=== PATIENT | male | born 1980 | race Caucasian/White ===

== ENCOUNTER 2017-08-15 20:40 | Emergency (ER) | payer OTHER ==
[~2017-08-15 20:40] MED LIST: AMOXIL 875 MG875 MG PO; AUGMENTIN 875 M1 TAB PO; BENTYL20 MG PO; CIPRO 500MG TA500 MG PO; FLAGYL250 MG PO
[2017-08-15 21:21] LABS: ABSOLUTE BASOPHIL COUNT 0 /CUMM (0.0-0.2); ABSOLUTE EOSINOPHIL COUNT 0.1 /CUMM (0.0-0.7); ABSOLUTE GRANULOCYTE CT 3.1 /CUMM (1.4-6.5); ABSOLUTE LYMPH COUNT 1.5 /CUMM (1.2-3.4); ABSOLUTE MONOCYTE COUNT 0.7 /CUMM (0.10-0.60); BASOPHIL % 0.4 % (0.0-2.0); EOSINOPHIL % 2.3 % (0-5); GRANULOCYTE % 56.3 % (42.2-75.2); MEAN CORPUSCULAR HGB 29.5 PG (27.0-31.0); MEAN CORPUSCULAR VOLUME 84.3 FL (80.0-94.0); MEAN PLATELET VOLUME 9.1 FL (7.4-10.4); PLATELET COUNT 245 /CUMM (130-400); RED BLOOD CELL CT 5.22 /CUMM (4.70-6.10); WHITE BLOOD CELL COUNT 5.5 /CUMM (4.8-10.8)
--- NOTE | 2017-08-15 22:29 | ED GI/GU/ABDOMINAL COMPLAINT ---
History of Present Illness General Chief Complaint: General Adult Stated Complaint: ?DEHYDRATION, DIARRHEA, NOT URINATING MUCH Source: patient Exam Limitations: no limitations Vital Signs & Intake/Output Vital Signs & Intake/Output Vital Signs Date Time Temp Pulse Resp B/P B/P Pulse O2 O2 Flow FiO2 Mean Ox Delivery Rate 08/15 2248 98.4 86 18 132/80 98 Room Air 08/15 2102 97.9 81 20 132/90 Allergies Coded Allergies: gatifloxacin (Severe, STOPPED BREATHING 05/17/15) Reconcile Medications No Known Home Medications Triage Note: PER PT FEELING DEHYDRATED SINCE TUESDAY, CRAMPY VOMITING DECREASED URINE OUTPUT, AND DIARRHEA STARTED YESTERDAY Triage Nurses Notes Reviewed? yes Onset: Abrupt Duration: day(s): Timing: recent history Quality/Severity: cramping Location: generalized abdomen Radiation: no radiation Activities at Onset: none HPI: 37-year-old male comes into the emergency room for further evaluation of multiple complaints. Patient reports that he has had a issue where he has not been urinating the last 3-4 days. He does not feel any urgency ago. He reports he feels dehydrated. He reports that he had some associated abdominal cramping and some loose stool that started today. Denies any fever chills or vomiting. Comes in for further evaluation. He reports that he's had some issues with urinating in the past and saw a urologist and told that he had a lazy bladder. She is also seen GI in the past and was diagnosed with ulcerative colitis or colonoscopy. Denies any blood in his stool. About 5 episodes of loose stool today. Denies any recent antibiotics or any other symptoms of symptoms. (Rashawn Rodriguez) Past History Travel History Traveled to [place] past 21 day No Medical History Any Pertinent Medical History? see below for history Neurological: NONE EENT: NONE Cardiovascular: NONE Respiratory: NONE Gastrointestinal: NONE Hepatic: NONE Renal: NONE Musculoskeletal: NONE Psychiatric: NONE Endocrine: NONE Surgical History Surgical History: nO ABDOMINAL SURGERIES Psychosocial History What is your primary language Hebrew Tobacco Use: Current Not Daily Daily Tobacco Use Amount/Type: =< 4 Cigarettes daily Family History Hx Contributory? No (Rashawn Rodriguez) Review of Systems Review of Systems Constitutional: Reports: no symptoms. EENTM: Reports: no symptoms. Respiratory: Reports: no symptoms. Cardiovascular: Reports: no symptoms. GI: Reports: see HPI. Genitourinary: Reports: see HPI. Musculoskeletal: Reports: no symptoms. Skin: Reports: no symptoms. Neurological/Psychological: Reports: no symptoms. Hematologic/Endocrine: Reports: no symptoms. Immunologic/Allergic: Reports: no symptoms. All Other Systems: Reviewed and Negative (Rashawn Rodriguez) Physical Exam Physical Exam General Appearance: well developed/nourished, no apparent distress, alert Head: atraumatic, normal appearance Eyes: Bilateral: normal appearance. Ears, Nose, Throat, Mouth: hearing grossly normal, moist mucous membrane Neck: normal inspection Respiratory: normal breath sounds, no respiratory distress Cardiovascular: regular rate/rhythm Gastrointestinal: normal bowel sounds, soft, non-tender Back: normal inspection Extremities: normal range of motion Neurologic/Psych: awake, alert, oriented x 3 Skin: intact, normal color Core Measures ACS in differential dx? No Sepsis Present: No Sepsis Focused Exam Completed? No (Rashawn Rodriguez) Progress Differential Diagnosis: biliary colic, bowel obstruction, diverticulitis, gastritis, ischemic bowel, pancreatitis, PUD/GERD, SBO, UTI/pyelo Plan of Care: Orders Procedure Date/time Status Add-on Test (ER Only) 08/15 2113 Active MAGNESIUM 08/15 2110 Complete COMPREHENSIVE METABOLIC PANEL 08/15 2110 Complete CREATINE PHOSPHOKINASE 08/15 2110 Complete CBC WITHOUT DIFFERENTIAL 08/15 2110 Complete Laboratory Tests 08/15/172114: Anion Gap 13, Estimated GFR > 60, BUN/Creatinine Ratio 16.0, Glucose 100 H, Calcium 9.3, Magnesium 1.7, Total Bilirubin 1.2, AST 43, ALT 93 H, Alkaline Phosphatase 56, Creatine Kinase 207 H, Total Protein 7.0, Albumin 4.2, Globulin 2.8, Albumin/Globulin Ratio 1.5, CBC w Diff NO MAN DIFF REQ, RBC 5.22, MCV 84.3, MCH 29.5, MCHC 35.0, RDW 12.0, MPV 9.1, Gran % 56.3, Lymphocytes % 27.6, Monocytes % 13.4 H, Eosinophils % 2.3, Basophils % 0.4, Absolute Granulocytes 3.1, Absolute Lymphocytes 1.5, Absolute Monocytes 0.7 H, Absolute Eosinophils 0.1, Absolute Basophils 0 Initial ED EKG: none Comments: 08/15/2017 11:12:06 PM Patient clinically looks well. Patient is no apparent distress. No acute abdomen. Follow-up with primary care doctor. Return if any other concerns worsening symptoms. Patient declined giving a urine sample here in the emergency room. 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 Return if any other concerns worsening symptoms. Please go over all results of today's visit with your primary care doctor. Contact your primary care doctor to let them know you were here in the emergency room. There may be nonspecific findings which may not be related to your visit today here in the emergency room but may require further evaluation and chronic monitoring by your primary care doctor. If you had a laceration today the chance of foreign body always remains. You should follow-up with your primary care doctor for recheck in 3-5 days for a wound check. If you had an x-ray done there is a chance that a fracture could have been missed on initial read and you should follow-up with your primary care doctor for repeat x-rays if symptoms persist. If your blood pressure was elevated here in the emergency room please have rechecked by [facility] primary care doctor within the next 48. If you were prescribed a narcotic here in the emergency room or any type of controlled substances you're not allowed to drive while taking this medication or operate any type of heavy machinery. Narcotics can make you feel lightheaded dizziness nausea and can cause constipation. You may need to potato picker a stool softener. Thank you for choosing [facility] emergency room. Please return to the emergency room immediately if you have any other concerns worsening of symptoms. Departure Forms: Customer Survey General Discharge Information Prescriptions: Current Visit Scripts No Known Home Medications (Rashawn Rodriguez) PA/LATHE SET UP OPERATOR Co-Sign Statement Statement: ED Attending supervision documentation- [] I saw and evaluated the patient. I have also reviewed all the pertinent lab results and diagnostic results. I agree with the findings and the plan of care as documented in the PA's/LATHE SET UP OPERATOR's documentation. [X] I have reviewed the ED Record and agree with the PA's/LATHE SET UP OPERATOR's documentation. [] Additions or exceptions (if any) to the PAs/LATHE SET UP OPERATOR's note and plan are summarized below: [] (Hali WELCH,Farzad Prescott)
[2017-08-15 22:48] VITALS: BP 132/80
== END 2017-08-15 22:49 ==
LOC: ERH 20:40
PROVIDERS: Emergency Medicine
DX: R19.7 Diarrhea, unspecified (principal); R33.9 Retention of urine, unspecified
CPT/HCPCS: 96360